=== PATIENT | male | born 1960 | race Caucasian/White ===

== ENCOUNTER 2021-06-10 08:07 | Outpatient (REF) | payer OTHER, SELFPAY ==
--- NOTE | ~2021-06-10 | MR_ITS ---
MRI OF THE BRAIN WITHOUT IV CONTRAST MRA OF THE BRAIN WITHOUT IV CONTRAST INDICATION: Posterolateral headaches, chronic/worsening COMPARISON: None available. TECHNIQUE: Multiplanar multisequence MR imaging of the brain was obtained without IV contrast. Additionally, a noncontrast [id number] MRA of the head is obtained. Vascular post-processing, including 2-dimensional and 3-dimensional reformatted images were created and reviewed on an independent workstation under concurrent physician supervision. Stenoses are graded per criteria similar to NASCET. FINDINGS: MRI BRAIN: There is no hydrocephalus, extra-axial surface collection, or herniation. There is mild chronic microangiopathy. The major flow voids at the skull base are preserved. There is no acute infarct on diffusion-weighted imaging. There is no intracranial hemorrhage on the gradient recalled echo acquisition. The midline structures are normal. 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 This is a normal variant. The cerebellum and brainstem are normal. The craniocervical junction is normal. Osseous marrow signal intensity is homogenous. The visualized soft tissues are unremarkable. MRA HEAD: There is normal antegrade flow related signal throughout the anterior and posterior intracranial arterial circulations without significant arterial stenosis and without acute arterial occlusion. No aneurysms and no high flow vascular malformations. MR/MR angio head wo con IMPRESSION: - No acute intracranial findings. - There is mild chronic microangiopathy. - Unremarkable MRA of the head.
--- NOTE | ~2021-06-10 | MR_ITS ---
MRI OF THE BRAIN WITHOUT IV CONTRAST MRA OF THE BRAIN WITHOUT IV CONTRAST INDICATION: Posterolateral headaches, chronic/worsening COMPARISON: None available. TECHNIQUE: Multiplanar multisequence MR imaging of the brain was obtained without IV contrast. Additionally, a noncontrast [id number] MRA of the head is obtained. Vascular post-processing, including 2-dimensional and 3-dimensional reformatted images were created and reviewed on an independent workstation under concurrent physician supervision. Stenoses are graded per criteria similar to NASCET. FINDINGS: MRI BRAIN: There is no hydrocephalus, extra-axial surface collection, or herniation. There is mild chronic microangiopathy. The major flow voids at the skull base are preserved. There is no acute infarct on diffusion-weighted imaging. There is no intracranial hemorrhage on the gradient recalled echo acquisition. The midline structures are normal. 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 This is a normal variant. The cerebellum and brainstem are normal. The craniocervical junction is normal. Osseous marrow signal intensity is homogenous. The visualized soft tissues are unremarkable. MRA HEAD: There is normal antegrade flow related signal throughout the anterior and posterior intracranial arterial circulations without significant arterial stenosis and without acute arterial occlusion. No aneurysms and no high flow vascular malformations. MR/MR head/brain wo con IMPRESSION: - No acute intracranial findings. - There is mild chronic microangiopathy. - Unremarkable MRA of the head.
== END 2021-06-10 08:08 | disposition home or self-care (01) ==
LOC: HO.MRI 08:07
PROVIDERS: PCP Internal Medicine; Visit Provider Nurse Practitioner Adult Health
DX: R51.0 Headache with orthostatic component, not elsewhere classified (principal)
CPT/HCPCS: 70544; 70551